=== PATIENT | female | born 1990 | race Caucasian/White ===

== ENCOUNTER 2021-10-27 17:23 | Emergency (ER) | payer OTHER, MEDICAID ==
[~2021-10-27] VITALS: Ht 162.6 cm; Wt 68.0 kg
--- NOTE | 2021-10-27 17:29 | NUR ---
JOSE MARIA ALS TO ER BED 9
[2021-10-27 17:31] VITALS: BP 107/43
--- NOTE | 2021-10-27 17:37 | NUR ---
46 y/o female biba, homeless, pt was found passed out in someone's front lawn. amr reports when pt was found, they were altered and mumbling words that were not comprehensive. pmh: unable to obtain allergy: unable to obtain
--- NOTE | 2021-10-27 17:38 | NUR ---
46 y/o female biba, homeless, pt was found passed out in someone's front lawn. amr reports when pt was found, they were altered and mumbling words that were not comprehensive. pt not alert or awake, very drowsy, both upper and lower extremities severe weak, gcs 12. lung sounds clear bl, tachypnea. heart sounds even and regular. pt unable to ambulate. skin has redness/hot/dry. pt resting in bed on monitor, ermd made aware of status. pmh: unable to obtain allergy: unable to obtain
[2021-10-27] MEDS ORDERED: NACL 0.9% 1,000 ML IV ONE (17:55)
[2021-10-27 18:13] LABS: BASOPHILS % (AUTO) 0.9 % (0.0-2.0); EOSINOPHILS # (AUTO) 0.1 K/uL (0-0.4); EOSINOPHILS % (AUTO) 1.4 % (0.0-4.0); HEMATOCRIT 34.3 % (36-48); HEMOGLOBIN 11.6 g/dL (12.0-16.0); LYMPHOCYTES # (AUTO) 2.4 K/uL (2.5-16.5); LYMPHOCYTES % (AUTO) 49.2 % (20.5-51.1); MEAN CORPUSCULAR HEMOGLOBIN 29 pg (27-31); MEAN CORPUSCULAR HGB CONC 34 g/dL (33-37); MEAN CORPUSCULAR VOLUME 86.8 fL (80-94); MONOCYTES # (AUTO) 0.4 K/uL (0.8-1.0); MONOCYTES % (AUTO) 9.2 % (1.7-9.3); NEUTROPHILS # (AUTO) 1.9 K/uL (1.8-7.7); NEUTROPHILS % (AUTO) 39.3 % (42.2-75.2); PLATELET COUNT (AUTO) 281 K/uL (140-450); RED BLOOD CELL COUNT(AUTO) 3.96 MIL/uL (4.20-5.40); RED CELL DISTRIBUTION WIDTH 15.4 % (11.6-13.7); WHITE BLOOD COUNT (AUTO) 4.9 K/uL (4.8-10.8)
[2021-10-27 18:29] LABS: ALBUMIN 3.4 g/dL (3.4-5.0); ASPARTATE AMINOTRANSFERASE 29 U/L (15-37); CARBON DIOXIDE 27.2 mmol/L (21-32); CHLORIDE 108 mmol/L (98-107); CREATININE 0.7 mg/dL (0.6-1.3); GFR ARICAN-AMERICAN 117 mL/min (>90); GLUCOSE 103 mg/dL (74-106); POTASSIUM 3.2 mmol/L (3.5-5.1); SALICYLATE 4.7 mg/dL (2.8-20.0); SODIUM SERUM 143 mmol/L (136-145); TOTAL BILIRUBIN 0.5 mg/dL (0.0-1.0); UREA NITROGEN, BLOOD 13 mg/dL (7-18)
[2021-10-27 18:31] LABS: ACETAMINOPHEN < 0.5 ug/ml (10-30)
--- NOTE | 2021-10-27 19:12 | NUR ---
Patient appears to be resting comfortably in bed. Respirations even and unlabored, but has tachypnea. pt skin feels hot to touch, no fever, temporal temp at 98.4. pt still hard to wake.
--- NOTE | 2021-10-27 19:24 | NUR ---
RECIEVED TRANSFER OF CARE REPORT FROM ILIA CHAWLA
--- NOTE | 2021-10-27 19:45 | NUR ---
# 15 FR Urinary catheter inserted utilizing sterile technique. Immediate return of 400 ml of clear mark urine noted. Urine sample collected and sent to lab. Pt tolerated procedure well.
[2021-10-27 21:32] LABS: BILIRUBIN,URINE 2+ (NEGATIVE); BLOOD, URINE NEGATIVE (NEGATIVE); LEUKOCYTE ESTERASE ,URINE NEGATIVE (NEGATIVE); PH,URINE 5.5 (5.0-9.0); UGLUCOSE NEGATIVE (NEGATIVE)
[2021-10-27 21:37] LABS: APPEARANCE,URINE CLEAR (CLEAR); COLOR,URINE AMBER (YELLOW); NITRITE, URINE NEGATIVE (NEGATIVE)
[2021-10-27 22:03] LABS: BARBITURATE, URINE NEGATIVE ng/ml (NEG <=200); BENZODIAZEPINE, URINE POSITIVE ng/mL (NEG <=200); CANNABINOID, URINE POSITIVE ng/mL (NEG <=50); COCAINE, URINE POSITIVE ng/mL (NEG <=300); OPIATE, URINE NEGATIVE ng/mL (NEG <=2000); PHENCYCLIDINE SCREEN,URINE NEGATIVE ng/mL (NEG <=25)
--- NOTE | 2021-10-27 23:16 | NUR ---
PT IS AWAKE AND ORIENTED, NOT COMPLAINING OF ANY PAIN. PT DOES NOT REMEMBER HOW SHE GOT TO THE HOSPITAL. PT IS ANSWERING QUESTIONS APPROPRIATELY AND COMPLIANT.
[2021-10-28 02:06] VITALS: BP 121/60
--- NOTE | 2021-10-28 02:08 | NUR ---
Patient discharged with v/s stable. Written and verbal after care instructions given and explained. Patient verbalized understanding. Ambulatory with steady gait. All questions addressed prior to discharge. Advised to follow up with PMD. vss, a/ox4, ambulatory, unlabored breathing, and calm demeanor.
== END 2021-10-28 02:05 | disposition home or self-care (01) ==
LOC: MERGE 17:23 → MED 17:23 → EDBD 17:23 → MED 10-28 02:05
DX: T50.994A Poisoning by other drugs, medicaments and biological substances, undetermined, initial encounter (principal); R41.82 Altered mental status, unspecified; Y92.89 Other specified places as the place of occurrence of the external cause
CPT/HCPCS: 36415; 70450; 80053; 80305; 81002; 81003; 81025; 85025; 96360; 99285; G0480; G0482; J7030